=== PATIENT | female | born 1980 | race Caucasian/White ===

== ENCOUNTER 2019-08-29 19:43 | Inpatient (IN) | payer BC ==
[~2019-08-29 19:43] MED LIST: Bupivacaine 0.25% 10 ML SDV ONE
[2019-08-29] MEDS ORDERED: Ampicillin 2 GM AdvVial IV ONE (20:08)
[2019-08-29] MEDS ORDERED: Lactated Ringers 1,000 ML ONE (20:08)
[2019-08-29] MEDS ORDERED: Ampicillin 2 GM in Sodium Chloride 0.9% 100 ML IV ONE (20:10)
[2019-08-29] MEDS ORDERED: Ondansetron 4 MG/2 ML SDV IVPUSH PRN (20:10)
[2019-08-29] MEDS ORDERED: Sodium Chloride 0.9% 10 ML Syringe FLUSH PRN (20:10)
[2019-08-29] MEDS ORDERED: Nalbuphine 10 MG/1 ML Vial IVPUSH PRN (20:10)
[2019-08-29] MEDS ORDERED: Lidocaine 1% 50 ML MDV INJECT SCH (20:15)
[2019-08-29] MEDS ORDERED: Lactated Ringers 1,000 ML IV SCH (20:15)
[2019-08-29] MEDS ORDERED: Oxytocin/Lactated Ringers 10 UNIT/1,000 ML BAG IV SCH (20:15)
[2019-08-29] MEDS ORDERED: diphenhydrAMINE 50 MG/ML SDV IVPUSH PRN (20:21)
[2019-08-29] MEDS ORDERED: fentaNYL 100 MCG/2 ML SDV EPIDUR PRN (20:21)
[2019-08-29] MEDS ORDERED: fentaNYL/Bupivacaine/NS 2 MCG-0.125% 250 ML EPIDUR PRN (20:21)
[2019-08-29] MEDS ORDERED: ePHEDrine 50 MG/ML SDV IVPUSH PRN (20:21)
--- NOTE | 2019-08-29 20:48 | PCM.PREANE ---
Preanesthetic Assessment - Procedure Proposed Procedure: Spinal for labor - Anesthesia/Transfusion/Family Hx Anesthesia History: Prior Anesthesia Without Reaction (epidural) Family History of Anesthesia Reaction: No Transfusion History: No Prior Transfusion(s) - Review of Systems General: No Symptoms Pulmonary: No Symptoms Cardiovascular: No Symptoms Gastrointestinal: Abdominal Pain (labor) Neurological: No Symptoms - Physical Assessment Height: 1.68 m Weight: 79.832 kg ASA Class: 2 Mental Status: Alert & Oriented x3 Airway Class: Mallampati = 1 Dentition: Reports: Normal Dentition Thyro-Mental Finger Breadths: 3 Mouth Opening Finger Breadths: 3 ROM/Head Extension: Full Lungs: Clear to Auscultation, Normal Respiratory Effort Cardiovascular: Regular Rate, Regular Rhythm - Allergies Allergies/Adverse Reactions: Allergies Allergy/AdvReac Type Severity Reaction Status Date / Time No Known Allergies Allergy Verified 08/29/19 19:52 - Anesthesia Plan Pre-Op Medication Ordered: None - Acknowledgements Anesthesia Type Planned: Spinal Pt an Appropriate Candidate for the Planned Anesthesia: Yes Alternatives and Risks of Anesthesia Discussed w Pt/Guardian: Yes Pt/Guardian Understands and Agrees with Anesthesia Plan: Yes PreAnesthesia Questionnaire - Past Health History Medical/Surgical History: Denies Medical/Surgical History Gastrointestinal History: Reports: 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: Endocrine/Metabolic History: Reports: Diabetes, Gestational - CURRENT (IN HOUSE) MEDS Current Meds: Current Medications Diphenhydramine HCl (Benadryl) 25 mg IVPUSH Q6H PRN PRN Reason: Itching Ephedrine Sulfate (Ephedrine Sulfate) 5 mg IVPUSH ASDIRECTED PRN PRN Reason: HYPOTENTSION Fentanyl (Sublimaze) 100 mcg EPIDUR Q3H PRN PRN Reason: Pain Fentanyl/Bupivacaine HCl (Fentanyl/Bupivacaine/Ns 2 Mcg-0.125% 250 Ml) 250 ml EPIDUR CONTINUOUS PRN PRN Reason: Pain Lactated Ringer's (Ringers, Lactated) 1,000 mls @ 100 mls/hr IV ASDIRECTED [facility] Last Admin: 08/29/19 20:10 Dose: 100 mls/hr Ampicillin Sodium 1 gm/ Sodium (Chloride) 100 mls @ 200 mls/hr IV Q4H SIMON Oxytocin/Lactated Ringer's (Pitocin In Lr 10 Units/1,000 Ml) 10 unit in 1,000 mls @ 500 mls/hr IV .CONTINUOUS SIMON Lidocaine HCl (Xylocaine 1%) 50 ml INJECT .ONETIME SIMON Nalbuphine HCl (Nubain) 10 mg IVPUSH Q2H PRN PRN Reason: Pain Ondansetron HCl (Zofran) 4 mg IVPUSH Q4H PRN PRN Reason: Nausea/Vomiting Sodium Chloride (Saline Flush) 10 ml FLUSH ASDIRECTED PRN PRN Reason: Keep Vein Open Discontinued Medications Ampicillin Sodium (Ampicillin) Confirm Administered Dose 2 gm IV .STK-MED ONE Stop: 08/29/19 20:09 Lactated Ringer's (Ringers, Lactated) Confirm Administered Dose 1,000 mls @ as directed .ROUTE .STK-MED ONE Stop: 08/29/19 20:09 Ampicillin Sodium 2 gm/ Sodium (Chloride) 100 mls @ 200 mls/hr IV ONETIME ONE Stop: 08/29/19 20:39 Last Admin: 08/29/19 20:32 Dose: 200 mls/hr
--- NOTE | 2019-08-29 21:13 | PCM.LDHP ---
L&D History of Present Illness - General Date of Service: 08/29/19 Admit Problem/Dx: Patient Status Order with Admit Dx/Problem 08/29/19 19:52 Patient Status [ADT] Routine 08/29/19 20:10 Patient Status [ADT] Routine Admission Diagnosis/Problem Admission Diagnosis/Problem 08/29/19 20:59 Alyson is a 38-year-old 8 para 6016 white female is presently at 38-6/ 7 weeks gestational age with an SARAHI of 09/06/2019 who is admitted to labor and delivery in active labor with advanced cervical dilation of 8 cm. Source of Information: Patient History Limitations: Reports: No Limitations - History of Present Illness Introduction:: Alyson is a 38-year-old 8 para 6016 white female is presently at 38-6/ 7 weeks gestational age with an SARAHI of 09/06/2019 who is admitted to labor and delivery in active labor with advanced cervical dilation of 8 cm.Patient was seen in clinic on the afternoon of 08/29/2019 with concerns of vaginal bleeding. The bleeding was mild. She is having occasional contractions but very mild in intensity. At that time patient was found be 3 cm dilated and 70-80% effaced. Suspicion was that she is in active labor. Baby was reported be very active and patient was offered the option of going home. She lives just a few minutes from the hospital. She progressed in labor and upon arrival with nursing evaluation she was found to be6 cm. My evaluation shows her to be 8 centimeters and approximately 100% effaced. Bulging bag of yates which was eventually ruptured with resultant clear amniotic fluid. 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 She had her menarche at age 16 cycles every 30 days. Last menstrual period was fairly certain. She is not using any control at this time conception. LMP was 11/30/2018. Her SARAHI of is set by her LMP. This supported by at least 2 ultrasounds done on 02/24 and 04/27/2019 past obstetric history includes 6 previous deliveries ranging in weight from proximal 6 lbs. 9 oz.-8 lbs. 0 oz. Patient has 3 females in 3 males with first delivery in 2002 and last delivery in 2017. All deliveries have been in different hospitals from [facility]. course patient was initially seen for this on 02/23/2019 at 12- 1/7 weeks gestational age. Patient's weight gain during the course of this was from 148.2 pounds to 177 pounds for approximately 29 pound weight. Fundal height growthas normal. Patient's course has been significant for group B strep positive urine culture at the beginning of the . Patient desired an epidural in labor and delivery. Risk factors include her age of 38 years, grand multiparous status. Patient declined genetic testing. Steptoe depression screening score on 04/21/2019 was 11/24. Patient plans on breast-feeding. She received her in immunization for flu on . Her T dap was given on 07/14/2019. Laboratory testing and shows her blood to be O+ with a negative antibody screen. First hemoglobin is 14.0 g/dL and platelets are 248, 000. She is rubella immune. RPR is nonreactive. Group B strep was seen on initial urine culture at first visit. Hepatitis B surface antigen and HIV assays are both negative as were her chlamydia and gonorrhea tests. Second trimester labs showed a hemoglobin of 12.3 g/dL and platelets of 199,000. One- hour GTT was 148. Three-hour glucose tolerance test was done and was normal with fasting blood sugar 76 a 1 hour glucose of 140, a 2 hour glucose 127 and 30 glucose of 108. RPR done on 06/10/2019 was nonreactive. Allergies: None Medications: 1. Multivitamins one daily 2. Folic acid 800 g per day Past medical history: 1. Normal spontaneous vaginal delivery 6 2. Miscarriage 1. Past surgical history: [place] teeth extraction Family history: Patient's mother is alive and well as is her father. One brother alive and well. Maternal grandfather is secondary to old age as is the maternal grandfather. Paternal grandmother is . She suffers from rheumatoid arthritis. Paternal grandfather is from heart disease reasons. No family history of cancer, bleeding or blood clotting disorders, anesthesia-related problems or related issues. Social history: Patient is . She is a [id number] mom. is Doug. She does not use any significant loss of alcohol, drugs or tobacco. She is a college graduate. They live in the [place] area. Review of systems: In general patient has no complaints. She is reporting contractions since earlier today. What he she'll persists. Skin: Negative Lungs: No infectious symptoms or shortness of breath Cardiovascular: No chest pain or exercise intolerance Breasts: Changes associated with . GI: Negative : changes with increased fundal height. Musculoskeletal: Negative Neurological: Negative In general the patient is well-developed, well-nourished, pleasant female of stated age in no acute distress. Skin is warm dry without lesions. HEENT, neck and back within normal limits. Lungs are clear with good breath sounds in all lung hughes. Cardiovascular exam shows regular and rhythm without murmurs. Abdomen fundal height was 39 cm with baby in vertex presentation on evaluation earlier today. Genital examcervix is 8 cm, 100% effaced, -2 station, bulging bag of watersruptured with resultant clear amniotic fluid.. Extremities and neurological exam are grossly within normal limits. 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: Endocrine/Metabolic History: Reports: Diabetes, Gestational Social & Family History - Family History Family Medical History: Noncontributory H&P Review of Systems - Review of Systems: Review Of Systems: See Below L&D Exam - Exam Exam: See Below - Vital Signs Weight: 79.832 kg Problem List Initiated/Reviewed/Updated: Yes Orders Last 24hrs: Active Orders 24 hr Category Date Time Status Patient Status [ADT] Routine ADT 08/29/19 20:10 Active Activity as Tolerated [RC] PFP Care 08/29/19 20:10 Active Communication Order [RC] ASDIRECTED Care 08/29/19 20:10 Active Communication Order [RC] ASDIRECTED Care 08/29/19 20:21 Active Cooling Warming Measures [RC] ASDIRECTED Care 08/29/19 20:21 Active Heart Tones [RC] ASDIRECTED Care 08/29/19 20:11 Active Non Stress Test [RC] PER UNIT ROUTINE Care 08/29/19 19:52 Active Notify Provider [RC] ASDIRECTED Care 08/29/19 20:21 Active Notify Provider [RC] PFP Care 08/29/19 20:10 Active Notify Provider [RC] PRN Care 08/29/19 20:10 Active Oxygen Therapy [RC] ASDIRECTED Care 08/29/19 20:21 Active Peripheral IV Care [RC] . DIRECTED Care 08/29/19 20:11 Active Pulse Oximetry [RC] ASDIRECTED Care 08/29/19 20:21 Active Pump Management, Intrathecal [RC] ASDIRECTED Care 08/29/19 20:11 Active Vaginal Exam [RC] PRN Care 08/29/19 19:56 Active Vital Signs [RC] PER UNIT ROUTINE Care 08/29/19 19:52 Active Vital Signs [RC] PER UNIT ROUTINE Care 08/29/19 20:10 Active Vital Signs [RC] Q1H Care 08/29/19 20:21 Active Regular Diet [DIET] Diet 08/29/19 Dinner Active CBC WITH AUTO DIFF [HEME] Stat Lab 08/29/19 20:50 Received RAPID PLASMA REAGIN,RPR [CHEM] Routine Lab 08/29/19 20:50 Received Ampicillin 1 gm Med 08/30/19 00:00 Active Sodium Chloride 0.9% [Normal Saline] 100 ml IV Q4H Bupivicaine/fentaNYL/NS [fentaNYL/Bupivacaine/NS 2 MCG- Med 08/29/19 20:21 Active 0.125% 250 ML] 250 ml EPIDUR CONTINUOUS PRN Lactated Ringers [Ringers, Lactated] 1,000 ml Med 08/29/19 20:15 Active IV ASDIRECTED Lidocaine 1% [Xylocaine 1%] Med 08/29/19 20:15 Active 50 ml INJECT .ONETIME Nalbuphine [Nubain] Med 08/29/19 20:10 Active 10 mg IVPUSH Q2H PRN Ondansetron [Zofran] Med 08/29/19 20:10 Active 4 mg IVPUSH Q4H PRN Oxytocin/Lactated Ringers [Pitocin in LR 10 Units/1,000 Med 08/29/19 20:15 Active ML] 10 unit in 1,000 ml IV .CONTINUOUS Sodium Chloride 0.9% [Saline Flush] Med 08/29/19 20:10 Active 10 ml FLUSH ASDIRECTED PRN diphenhydrAMINE [Benadryl] Med 08/29/19 20:21 Active 25 mg IVPUSH Q6H PRN ePHEDrine [ePHEDrine sulfate] Med 08/29/19 20:21 Active 5 mg IVPUSH ASDIRECTED PRN fentaNYL [Sublimaze] Med 08/29/19 20:21 Active 100 mcg EPIDUR Q3H PRN Electronic Heart Tones Ext w TOCO [WOMSER] Oth 08/29/19 20:10 Ordered Routine Electronic Heart Tones Internal [WOMSER] Per Unit Oth 08/29/19 20:10 Ordered Routine Peripheral IV Insertion Adult [OM.PC] Routine Oth 08/29/19 20:10 Ordered Resuscitation Status Routine Resus Stat 08/29/19 19:52 Ordered Medication Orders Diphenhydramine HCl (Benadryl) 25 mg IVPUSH Q6H PRN PRN Reason: Itching Ephedrine Sulfate (Ephedrine Sulfate) 5 mg IVPUSH ASDIRECTED PRN PRN Reason: HYPOTENTSION Fentanyl (Sublimaze) 100 mcg EPIDUR Q3H PRN PRN Reason: Pain Fentanyl/Bupivacaine HCl (Fentanyl/Bupivacaine/Ns 2 Mcg-0.125% 250 Ml) 250 ml EPIDUR CONTINUOUS PRN PRN Reason: Pain Lactated Ringer's (Ringers, Lactated) 1,000 mls @ 100 mls/hr IV ASDIRECTED SIMON Last Admin: 08/29/19 20:10 Dose: 100 mls/hr Ampicillin Sodium 1 gm/ Sodium (Chloride) 100 mls @ 200 mls/hr IV Q4H [facility] Oxytocin/Lactated Ringer's (Pitocin In Lr 10 Units/1,000 Ml) 10 unit in 1,000 mls @ 500 mls/hr IV .CONTINUOUS [facility] Lidocaine HCl (Xylocaine 1%) 50 ml INJECT .ONETIME [facility] Nalbuphine HCl (Nubain) 10 mg IVPUSH Q2H PRN PRN Reason: Pain Ondansetron HCl (Zofran) 4 mg IVPUSH Q4H PRN PRN Reason: Nausea/Vomiting Sodium Chloride (Saline Flush) 10 ml FLUSH ASDIRECTED PRN PRN Reason: Keep Vein Open Assessment/Plan Comment:: 1. 38-6/7 week intrauterine , active labor, advanced cervical dilation 2. Risk factors include vaginal multiparous status and age of 38. 3. Group B strep positive status 4. Patient desires epidural in labor and delivery 5. Patient is up-to-date regarding her T dap, flu vaccination and MMR. 6. Patient plans to breast-feed Plan: 1. Anticipate normal spontaneous vaginal delivery 2. Patient has been administered a spinal block for labor analgesia 3. Platelet count and RPR per protocol 4. Support patient's decision to nurse.
--- NOTE | 2019-08-29 21:55 | PCM.SN ---
- Free Text/Narrative Note: Georgie is a 38-year-old 8 para 6016 white female is presently at 38-6/ 7 weeks gestational age with an SARAHI of 09/06/2019 who is admitted to labor and delivery in active labor with advanced cervical dilation of 8 cm.Patient was seen in clinic on the afternoon of 08/29/2019 with concerns of vaginal bleeding. The bleeding was mild. The patient underwent spinal for labor analgesia.she made rapid progress to complete cervical dilation by Abelardo approximately 20/9/ 20 hours on 08/29/2019. With 3 contractions she then delivered the baby in a left occiput anterior. Shoulders delivered without incident baby delivered completely and was then placed on om's abdomen on a warm dry blanket. Nose and mouth were bulb suctioned. Pitocin was started and run at 500 mLhour in an effort to increase uterine tone and decreased likelihood of bleeding. Cord was allowed to pulsate for approximately 2 minutes and then was clamped 2 and cut by the baby's father Doug.cord blood was obtained. The umbilical cord had 3 vessels. The placenta delivered in a Bowers presentation, appeared intact and complete and was discarded per patient desire. Patient had no perineal or vaginal lacerations and therefore no suturing was required. Estimated blood loss was 100 mL. Patient plans to breast-feed. Condition: Good.
[2019-08-29] MEDS ORDERED: Docusate Sodium 100 MG Cap PO PRN (23:26)
[2019-08-29] MEDS ORDERED: Benzocaine/Menthol 20%-0.5% Spray 56 GM Canister TOP PRN (23:26)
[2019-08-29] MEDS ORDERED: Acetaminophen 325 MG Tab PO PRN (23:26)
[2019-08-29] MEDS ORDERED: Witch Hazel Medicated Pads 40/Jar TOP PRN (23:26)
[2019-08-30] MEDS ORDERED: Ampicillin 1 GM in Sodium Chloride 0.9% 100 ML IV SCH ×2
[2019-08-30] MEDS: Ibuprofen 600 MG Tab PO PRN ×3 (01:16→17:22)
--- NOTE | 2019-08-30 07:36 | PCM48HPAN ---
Post Anesthesia Note - EVALUATION WITHIN 48HRS OF ANESTHETIC Vital Signs in Normal Range: Yes Patient Participated in Evaluation: Yes Respiratory Function Stable: Yes Airway Patent: Yes Cardiovascular Function Stable: Yes Hydration Status Stable: Yes Pain Control Satisfactory: Yes Nausea and Vomiting Control Satisfactory: Yes Mental Status Recovered: Yes Vital Signs: Last Vital Signs Temp 36.9 C 08/29/19 19:52 Pulse 96 08/30/19 04:18 Resp 14 08/30/19 04:18 BP 107/68 08/30/19 04:18 Pulse Ox 94 L 08/30/19 04:18 - COMMENTS/OBSERVATIONS Free Text/Narrative:: no anesthesia complications noted
[2019-08-30] MEDS ORDERED: Prenatal Multivitamin with Calcium/Folic Acid/Iron Tab PO SCH (09:00)
--- NOTE | 2019-08-30 12:16 | PCM.SN ---
- Free Text/Narrative Note: note: Patient is doing well in the period. Minimal lochia, voiding well, ambulated without problems. Nursing without concerns. Patient is afebrile, vital signs are stable Abdomen is flat, soft, uterus is below the umbilicus and is firm and nontender. Legs are nontender. Assessment: recovery going well. Plan: Routine care. Patient be discharged home within the next 24- 48 hours.
--- NOTE | 2019-08-31 07:53 | PCM.DCSUM1 ---
Discharge Summary - Hospital Course Free Text/Narrative:: Georgie is a 38-year-old 8 para 6016 white female is presently at 38-6/ 7 weeks gestational age with an SARAHI of 09/06/2019 who is admitted to labor and delivery in active labor with advanced cervical dilation of 8 cm.Patient was seen in clinic on the afternoon of 08/29/2019 with concerns of vaginal bleeding. The bleeding was mild. The patient underwent spinal for labor analgesia.she made rapid progress to complete cervical dilation by Abelardo approximately 20/ 20 hours on 08/29/2019. With 3 contractions she then delivered the baby in a left occiput anterior. Shoulders delivered without incident baby delivered completely and was then placed on om's abdomen on a warm dry blanket. Nose and mouth were bulb suctioned. Pitocin was started and run at 500 mLhour in an effort to increase uterine tone and decreased likelihood of bleeding. Cord was allowed to pulsate for approximately 2 minutes and then was clamped 2 and cut by the baby's father Doug.cord blood was obtained. The umbilical cord had 3 vessels. The placenta delivered in a Bowers presentation, appeared intact and complete and was discarded per patient desire. Patient had no perineal or vaginal lacerations and therefore no suturing was required. Estimated blood loss was 100 mL. Patient plans to breast-feed. patient is doing well. She is nursing without problems, has minimal lochia and is voiding without concerns. She is desiring discharge home today. Condition: Good. Diagnosis: Stroke: No - Discharge Data Discharge Date: 08/31/19 Discharge Disposition: Home, Self-Care 01 Condition: Good - Referral to Home Health Primary Care Physician: Jarrod Sauer MD - Patient Instructions Diet: Regular Diet as Tolerated (Nursing diet with increase calories and calcium as recommended.) Activity: As Tolerated (No intercourse or tampons until bleeding results.) Driving: May Drive Today Showering/Bathing: May Shower (May take a bath) Notify Provider of: Fever, Increased Pain, Swelling and Redness, Nausea and/or Vomiting - Discharge Plan Home Medications: Home Meds Vit B Comp&C/Folic Acid/Vit D3 [Dialyvite 800 Plus D Wafer] 1 tab PO DAILY 08/30 [History] Acetaminophen [Tylenol] 650 mg PO Q4H PRN tablet 08/31/19 [Rx] Ibuprofen [Motrin] 600 mg PO Q4H PRN tablet 08/31/19 [Rx] Referrals: Jarrod Sauer MD [Primary Care Provider] - (Return to clinicDr. Sauer2 weeks.) - Discharge Summary/Plan Comment DC Time >30 min.: No Discharge Summary/Plan Comment: Discharge instructions: 1. Discharge home 2. Diet, activity and follow-up discussed with patient. Recommend nursing diet with increased calories and calcium. 3. Precautions given concern increased pain, bleeding, temperature, signs/ symptoms of DVT/PE. 4. Medications per home medication was printed, discussed with and given to the patient. 5. Return to clinic-Dr. Sauer[facility] in 2 weeks. Diagnosis: Term -delivered Condition: Good - Patient Data Vitals - Most Recent: Last Vital Signs Temp 36.6 C 08/30/19 13:01 Pulse 76 08/31/19 02:58 Resp 14 08/31/19 02:58 BP 104/75 08/31/19 02:58 Pulse Ox 98 08/31/19 02:58 Weight - Most Recent: 79.832 kg Med Orders - Current: Current Medications Acetaminophen (Tylenol) 650 mg PO Q4H PRN PRN Reason: mild pain or fever Benzocaine/Menthol (Dermoplast Pain Relief [place]) 0 gm TOP ASDIRECTED PRN PRN Reason: Perineal Comfort Measure Last Admin: 08/29/19 23:46 Dose: 1 canister Docusate Sodium (Colace) 100 mg PO BID PRN PRN Reason: Constipation Ibuprofen (Motrin) 600 mg PO Q4H PRN PRN Reason: Mild pain or fever Last Admin: 08/30/19 17:22 Dose: 600 mg Prenat Multivit/Pratt/Iron/Folic Ac ( Plus Iron) 1 each PO DAILY SIMON Last Admin: 08/30/19 10:20 Dose: 1 each Witch Elen (Tucks) 1 pad TOP ASDIRECTED PRN PRN Reason: Pain Last Admin: 08/29/19 23:47 Dose: 1 tub Discontinued Medications Ampicillin Sodium (Ampicillin) Confirm Administered Dose 2 gm IV .STK-MED ONE Stop: 08/29/19 20:09 Last Admin: 08/29/19 23:45 Dose: Not Given Bupivacaine HCl (Sensorcaine-Mpf 0.25%) 10 ml .ROUTE .STK-MED ONE Stop: 08/29/19 00:01 Diphenhydramine HCl (Benadryl) 25 mg IVPUSH Q6H PRN PRN Reason: Itching Ephedrine Sulfate (Ephedrine Sulfate) 5 mg IVPUSH ASDIRECTED PRN PRN Reason: HYPOTENTSION Fentanyl (Sublimaze) 100 mcg EPIDUR Q3H PRN PRN Reason: Pain Fentanyl/Bupivacaine HCl (Fentanyl/Bupivacaine/Ns 2 Mcg-0.125% 250 Ml) 250 ml EPIDUR CONTINUOUS PRN PRN Reason: Pain Lactated Ringer's (Ringers, Lactated) Confirm Administered Dose 1,000 mls @ as directed .ROUTE .[facility] ONE Stop: 08/29/19 20:09 Last Admin: 08/29/19 23:46 Dose: Not Given Ampicillin Sodium 2 gm/ Sodium (Chloride) 100 mls @ 200 mls/hr IV ONETIME ONE Stop: 08/29/19 20:39 Last Admin: 08/29/19 20:32 Dose: 200 mls/hr Lactated Ringer's (Ringers, Lactated) 1,000 mls @ 100 mls/hr IV ASDIRECTED SIMON Last Admin: 08/29/19 20:10 Dose: 100 mls/hr Ampicillin Sodium 1 gm/ Sodium (Chloride) 100 mls @ 200 mls/hr IV Q4H [facility] Oxytocin/Lactated Ringer's (Pitocin In Lr 10 Units/1,000 Ml) 10 unit in 1,000 mls @ 500 mls/hr IV .CONTINUOUS SIMON Last Infusion: 08/29/19 23:45 Dose: Infused Lidocaine HCl (Xylocaine 1%) 50 ml INJECT .ONETIME [facility]ON Nalbuphine HCl (Nubain) 10 mg IVPUSH Q2H PRN PRN Reason: Pain Ondansetron HCl (Zofran) 4 mg IVPUSH Q4H PRN PRN Reason: Nausea/Vomiting Sodium Chloride (Saline Flush) 10 ml FLUSH ASDIRECTED PRN PRN Reason: Keep Vein Open
== END 2019-08-31 10:15 | disposition home or self-care (01) | DRG 560 ==
LOC: JD.OB 19:43 → JD.OBCHECK 19:43 → JD.OB 20:10 → OBSVTOIN 21:29
PROVIDERS: ADMIT Obstetrics & Gynecology; ATTEND Obstetrics & Gynecology
PROC: 10E0XZZ Delivery of Products of Conception, External Approach (ICD-10-PCS; principal; 2019-08-29)
PROC: 10907ZC Drainage of Amniotic Fluid, Therapeutic from Products of Conception, Via Natural or Artificial Opening (ICD-10-PCS; 2019-08-29)
PROC: 3E033VJ Introduction of Other Hormone into Peripheral Vein, Percutaneous Approach (ICD-10-PCS; 2019-08-29)
PROC: 3E0R3BZ Introduction of Anesthetic Agent into Spinal Canal, Percutaneous Approach (ICD-10-PCS; 2019-08-29)
DX: O99.824 Streptococcus B carrier state complicating childbirth (principal); O24.429 Gestational diabetes mellitus in childbirth, unspecified control; Z37.0 Single live birth; Z3A.38 38 weeks gestation of pregnancy
CPT/HCPCS: 01967; 36415; 51701; 59025; 59409; 85025; 86592; A9270-GY; J0290; J2590; J3490; J7030; J7120